=== PATIENT | female | born 1980 | race Caucasian/White ===

== ENCOUNTER 2023-01-26 12:17 | Emergency (ER) | payer MEDICAID ==
[~2023-01-26] VITALS: Ht 160 cm; Wt 75.0 kg
[2023-01-26 12:52] VITALS: O2SAT 99
[2023-01-26] MEDS ORDERED: ACETAMINOPHEN 325MG TABLET PO ONE (13:45)
[2023-01-26 14:04] LABS: BASOPHILS % 0.9 % (0.0-2.0); DIFFERENTIAL COMMENT 0; EOSINOPHILS % 2.1 % (0.0-5.0); HEMATOCRIT. 37.9 % (36.0-48.0); LYMPHOCYTES % 48.7 % (20.0-50.0); MEAN CORPUSCULAR HEMOGLOBIN 23.7 pg (28.0-32.0); MEAN CORPUSCULAR HGB CONC 31.6 g/dL (31.0-37.0); MEAN CORPUSCULAR VOLUME 74.8 fL (81.0-99.0); MEAN PLATELET VOLUME 6.9 fl (7.4-10.4); NEUTROPHILS % 41.3 % (40.0-76.0); PLATELET 358 x1000/uL (130-400); RED BLOOD CELL COUNT 5.06 mill/uL (4.2-5.4); RED CELL DISTRIBUTION WIDTH 19.3 % (11.6-14.6); WHITE BLOOD COUNT 5.9 x1000/uL (4.5-11.0)
[2023-01-26 14:28] LABS: ALANINE AMINOTRANSFERASE 15 IU/L (10-49); ALBUMIN 4.7 g/dL (3.2-4.8); ASPARTATE AMINOTRANSFERASE 17 IU/L (<34); BILIRUBIN TOTAL 0.9 mg/dL (0.1-1.0); CALCIUM 9.2 mg/dL (8.7-10.4); CARBON DIOXIDE 23 mEq/L (21-32); CHLORIDE 106 mEq/L (98-107); CREATININE 0.6 mg/dL (0.6-1.0); GLUCOSE 80 mg/dL (70-105); HCG SCREEN NEGATIVE; PROTEIN TOTAL 7.9 g/dL (6.0-8.3); SODIUM 138 mEq/L (136-145); UREA NITROGEN BLOOD 9 mg/dL (9-23)
[2023-01-26 14:51] LABS: TROPONIN I HIGH SENSITIVITY < 4 ng/L (3.0-34)
[2023-01-26] MEDS ORDERED: ACETAMINOPHEN 325MG TABLET PO NR (17:15)
[2023-01-26] MEDS ORDERED: LISI-186 MT (17:15)
[2023-01-26 18:24] VITALS: BP 165/108; PULSE 80; RESP 18; TEMP 98.5
== END 2023-01-26 18:28 | disposition home or self-care (01) ==
LOC: ER 12:17
DX: I10 Essential (primary) hypertension (principal); R07.89 Other chest pain; Z90.49 Acquired absence of other specified parts of digestive tract
CPT/HCPCS: 36415; 71045; 80053; 81025; 84484; 84703; 85025; 93005; 99285